=== PATIENT | male | born 1970 | race Caucasian/White ===

== ENCOUNTER 2020-04-07 13:22 | Emergency (ER) | payer SELFPAY ==
--- NOTE | 2020-04-07 13:57 | ER ---
Nurse's Notes [facility] Name: Dakota Davis Age: 49 yrs Sex: Male : 1970 Arrival Date: 04/07/2020 Time: 13:22 Bed Waiting Private MD: Diagnosis: Presentation: 04/07 13:35 Note Checked on pt. Pt states. "I have this chest pain for years now, but has gotten ca1 worse in the last 5 days". MO 67, SPO2 00%. ED Course: 13:22 Patient arrived in ED. ag5 13:54 Patient's name was called from ER lobby. No response. Unable to locate patient. Will ca1 disposition as left without being seen by a provider. Administered Medications: No medications were administered Outcome: 13:56 Patient left the ED. ca1 Signatures: Meche Yip RN RN ca1 Anjana Akins ag5 Corrections: (The following items were deleted from the chart) 14:02 13:35 Note Checked on pt. Pt states. "I have this chest pain for years now, but has ca1 gotten worse in the last 5 days". MO 67, SPO2 00%. ca1
== END 2020-04-07 13:56 | disposition left against medical advice (07) ==
LOC: ER 13:22
DX: Z53.21 Procedure and treatment not carried out due to patient leaving prior to being seen by health care provider (principal)

== ENCOUNTER 2020-08-06 06:23 | Emergency (ER) | payer SELFPAY ==
--- NOTE | 2020-08-06 07:30 | ER ---
Nurse's Notes [facility] Name: Dakota Davis Age: 50 yrs Sex: Male : 1970 Arrival Date: 08/06/2020 Time: 06:39 Bed Waiting Private MD: Diagnosis: ED Course: 08/06 06:39 Patient arrived in ED. am4 06:44 Patient's name was called from ER lobby. No response. bb 07:10 Patient's name was called from ER lobby. No response. Unable to locate patient. Will aa5 disposition as left without being seen by a provider. 07:28 Patient's name was called from ER lobby. No response. Unable to locate patient. Will aa5 disposition as left without being seen by a provider. Administered Medications: No medications were administered Outcome: 07:29 Patient left the ED. aa5 Signatures: Elba Griffiths RN RN bb Masha Lindsay RN RN aa5 Andie Curtis am4
== END 2020-08-06 07:29 | disposition left against medical advice (07) ==
LOC: ER 06:23
DX: R69 Illness, unspecified (principal); Z53.21 Procedure and treatment not carried out due to patient leaving prior to being seen by health care provider

== ENCOUNTER 2025-01-08 16:02 | Emergency (ER) | payer BC, SELFPAY ==
--- OUTSIDE RECORDS SUMMARY | 2025-01-08 16:03 | XMS REPORT | Continuity of Care Document ---
Author Name Unknown Address [address] [place] [address] [facility] Address [address] [place] [address] Care Team Providers Care Store Management Trainee Name Role Phone PCP, PATIENT DOES NOT HAVE A Primary Care Physic marlyn Unavailable Campaigns, Generic Provider Attending Clinician Unavailable Claudia LAZO Attending Clinician Unavailable Claudia LAZO Attending Clinician Unavailable Claudia Cordero Attending Clinician [phone] Claudia LAZO Admitting Clinician Unavailable Payers Payer Name Policy Type Policy Number Effective Date Expirati on Date Source Allergies, Adverse Reactions, Alerts Allergy Name Allergy Type Status Severity Reaction(s) Onset Date Inactive Date Treating Clinician Comments Source NO KNOWN ALLERGIE S Drug Class Active [facility] Social History Social Habit Start Date Stop Date Quantity Comments Source Sexual orientation [facility] Sex assigned at 1970 00:00:00 1970 00:00:00 [facility] Smoking Status Start Date Stop Date Source Tobacco smoking consumption unknown [facility] Vital Signs Vital Name Observation Time Observation Value Comments Joseph lalatheo Systolic blood pressure 2024-03-29 00:38:13 163 mm[Hg] [facility] Diastolic blood pressure 2024-03-29 00:38:13 88 mm[Hg] [facility] Heart rate 2024-03-29 00:38:13 55 /min [facility] Body temperature 2024-03-29 00:38:13 36.78 Brenda [facility] Respiratory rate 2024-03-29 00:38:13 18 /min [facility] Body height 2024-03-29 00:38:13 177.8 cm [facility] Body weight 2024-03-29 00:38:13 70.308 kg [facility] BMI 2024-03-29 00:38:13 22.24 kg/m2 [facility] Oxygen saturation in Arterial blood by Pulse oximetry 2024-03-29 00:38:13 98 /min Arley o f [facility] Procedures Procedure Date / Time Performed Performing Clinicia n Source XR CHEST 1 2024-03-29 01:50:00 Claudia Lazo [facility] Encounters Start Date/Time End Date/Time Encounter Type Admission Type Attending [facility] Care Facility Care Department Encounter ID Source 2024-04-04 00:00:00 2024-04-04 10:57:00 Letter (Out) Campaigns, Generic Provider Campaigns, Generic Provider [facility] [id number] [facility] 2024-03-28 19:42:00 2024-03-28 21:55:00 Emergency X Claudia LAZO K [facility] ERT [id number] [facility] 2024-03-28 19:42:00 2024-03-28 21:55:00 Emergency Claudia Lazo [facility] [id number] [facility] 2020-08-29 05:48:00 2020-08-29 05:48:00 Emergency X [facility] ERT [id number] [facility] Results Test Description Test Time Test Comments Results Resul t Comments Source XR CHEST 1 2024-03-01 1 02:28:36 STUDY: SINGLE FRONTAL VIEW OF THE CHEST ORDERING PHYSICIAN: Claudia LAZO DATE: ?03/28/2024 8:30 PM REASON FOR EXAM: ?panic attack TECHNIQUE: ?Frontal view of the chest COMPARISON: None available FINDINGS: The cardiomediastinal silhouette is normal. There is mild atelectasis/scarring in the right midlung. There is noconsolidation, pneumothorax or effusion. The remaining osseous and soft tissue structures are unremarkable. [facility] Notes Date/Time Note Provider Source 2024-03-28 21:34:28 ER registration called to say the patient was leaving. Hannah Silverman RN [facility] 2024-03-28 19:35:08 CC: Patient's received bad news today, and patient began to get emotion and he couldn't breath. Pt was able to take a few sips of water, and felt better. Pt denies previous panic attacks. No PMH of anxiety. Awake, alert, oriented, resp reg unlabored, skin intact, color appropriate for race, moves all ext without difficulty, amb Antonina Sanches RN [facility]
[2025-01-08] MEDS ORDERED: ONDANSETRON 4 MG/2 ML VIAL ONE (17:29)
[2025-01-08] MEDS ORDERED: MORPHINE 4 MG/ML SYR ONE (17:29)
[2025-01-08 17:32] LABS: Absolute Lymphocytes (CBC) 2.5 K/uL (0.7-4.9); Hematocrit 53.5 % (39.6-49.0); Hemoglobin 18.2 g/dL (13.6-17.9); MCH 31.4 pg (27.0-35.0); MCHC 34.0 g/dL (32.0-36.0); MCV 92.4 fL (80-100); MPV 10.4 fL (7.6-11.3); Nucleated RBC Absolute Count 0.0 (0-0); Nucleated Red Blood Cells % 0.1 % (0-0); RBC Red Blood Cell Count 5.79 M/uL (4.33-5.43); White Blood Count 13.00 thou/uL (4.3-10.9)
[2025-01-08 17:52] LABS: ALT/SGPT 45.0 U/L (16-61); AST/SGOT 29.0 U/L (15-37); Albumin 4.2 g/dL (3.4-5.0); Albumin/Globulin Ratio 1.2 (1.1-1.8); Alkaline Phosphatase 72.0 U/L (45-117); Anion Gap 8.2 mEq/L (5.0-15.0); BUN Blood Urea Nitrogen 13.0 mg/dL (7-18); Globulin 3.4 g/dL (2.3-3.5); Glucose Level 100.0 mg/dL (74-106); Potassium 4.2 mEq/L (3.5-5.1); Troponin High Sensitivity 5.2 pg/mL (<58.9)
--- NOTE | 2025-01-08 17:57 | RAD REPORT ---
EXAMINATION: TWO VIEW CHEST XR CLINICAL INDICATION: Male, 54 years old. [facility] MAIN COUGH Bed Name: [facility] TECHNIQUE: 2 view radiographs of the chest were performed. COMPARISON: 04/23/2012. FINDINGS: The lungs are well inflated and clear. No pneumothorax or sizable effusion. The heart is normal in si ze. Mediastinal contours are unremarkable. IMPRESSION: No acute or significant abnormalities.
--- NOTE | 2025-01-08 17:59 | RAD REPORT ---
EXAMINATION: XR RIGHT SHOUDLER CLINICAL INDICATION: Male, 54 years old. PAIN RIGHT TECHNIQUE:Two view radiograph of the right shoulder were obtained. COMPARISON: No prior exam. FINDINGS: No acute bone or joint abnormality detected. Mild AC joint degenerative changes. Soft tissu es are unremarkable. IMPRESSION: No acute or significant abnormalities.
--- NOTE | 2025-01-08 18:41 | RAD REPORT ---
EXAMINATION: US Extrem Venous W Compress Mahamed CLINICAL INDICATION: [facility] SWELL[facility] Bed Name: 14 Y TECHNIQUE: Complete bilateral duplex sonography of the BILATERAL lower extremity veins was performed. The examination included compression for vein patency, color Doppler imaging and flow augmentation in response to distal compression of the distal external iliac, common femoral, femoral, popliteal, t ibial, and great and small saphenous veins. COMPARISON: No prior exam. FINDINGS: Duplex sonography testing of the veins of the BILATERAL lower extremity was performed. Color flow soraya ging shows all veins to be compressible with [id number] color filling. Pulsatile and phasic flow is present within all lower extremity deep and superficial veins examined. IMPRESSION: There is no deep vein or superficial vein thrombosis.
--- NOTE | 2025-01-08 18:50 | ER ---
Nurse's Notes [facility] Name: Dakota Davis Age: 54 yrs Sex: Male : 1970 Arrival Date: 01/08/2025 Time: 16:02 Bed 13 Private MD: Diagnosis: Acute upper respiratory infection, unspecified Presentation: 01/08 16:21 Chief complaint: Right sided neck pain that radiates to right arm x 3 weeks, pain hb became worse 3 days ago. Coronavirus screen: At this time, the client does not indicate any symptoms associated with coronavirus-19. Ebola Screen: No symptoms or risks identified at this time. Initial Sepsis Screen: Does the patient meet any 2 criteria? No. Patient's initial sepsis screen is negative. Does the patient have a suspected source of infection? No. Patient's initial sepsis screen is negative. Risk Assessment: Do you want to hurt yourself or someone else? Patient reports no desire to harm self or others. Onset of symptoms was December 18, 2024. 16:21 Method Of Arrival: Ambulatory hb 16:21 Acuity: KM 3 hb Historical: - Allergies: 16:24 No Known Allergies; hb - Immunization history:: Adult Immunizations unknown. - Infectious Disease History:: Denies. - Social history:: Smoking status: unknown. Screenin:13 [facility] ED Fall Risk Assessment (Adult) History of falling in the last 3 months, db including since admission No falls in past 3 months (0 pts) Confusion or Disorientation No (0 pts) Intoxicated or Sedated No (0 pts) Impaired Gait No (0 pts) Mobility Assist Device Used No (0 pt) Altered Elimination No (0 pt) Score/Fall Risk Level 0 - 2 = Low Risk Oriented to surroundings, Maintained a safe environment. Abuse screen: Denies threats or abuse. Denies injuries from another. Nutritional screening: No deficits noted. Tuberculosis screening: No symptoms or risk factors identified. Assessment: 17:36 Reassessment: Patient appears in no apparent distress at this time. Patient and/or db family updated on plan of care and expected duration. Pain level reassessed. Patient is alert, oriented x 3, equal unlabored respirations, skin warm/dry/pink. General: Appears in no apparent distress. comfortable, Behavior is calm, cooperative. Pain: Complains of pain in right arm. Neuro: Level of Consciousness is awake, alert, obeys commands, Oriented to person, place, time, situation. Respiratory: Airway is patent Respiratory effort is even, unlabored, Respiratory pattern is regular, symmetrical. 19:07 Reassessment: Patient appears in no apparent distress at this time. Patient and/or db family updated on plan of care and expected duration. Pain level reassessed. Patient is alert, oriented x 3, equal unlabored respirations, skin warm/dry/pink. Patient states feeling better. Patient states symptoms have improved. Vital Signs: 16:21 BP 152 / 99; Pulse 62; Resp 18; Temp 97.1; Pulse Ox 99% on R/A; Weight 70.31 kg; Height hb 5 ft. 9 in. ; Pain 4/10; 18:03 BP 116 / 82; Pulse 53; Resp 16; Pulse Ox 95% ; db 18:30 BP 155 / 92; Pulse 56; Resp 16; Pulse Ox 95% ; db 16:21 Body Mass Index 22.89 (70.31 kg, 175.26 cm) hb 16:21 Pain Scale: Adult hb ED Course: 16:03 Patient arrived in ED. im 16:03 Shukri Clark FNP-C is PHCP. dr5 16:03 Fidencio Myrick MD is Attending Physician. dr5 16:24 Triage completed. hb 16:58 Chest Pa And Lat (2 Views) XRAY In Process Unspecified. EDMS 16:58 Shoulder Right (2 View) XRAY In Process Unspecified. EDMS 17:20 Initial lab(s) drawn, by me, sent to lab. Inserted saline lock: 20 gauge in left wrist, db using aseptic technique. Blood collected. Flushed with 10 mL NS. 17:35 Elsie Stack, RN is Primary Nurse. db 17:56 US Extremity Venous W Compression Mahamed In Process Unspecified. EDMS 18:13 Patient has correct armband on for positive identification. Bed in low position. Call db light in reach. Side rails up X 1. Pulse ox on. NIBP on. 18:15 Patient placed in an exam room. db 19:07 No provider procedures requiring assistance completed. IV discontinued, intact, db bleeding controlled, No redness/swelling at site. 19:07 Provided Education on: PRESCRIPTIONS AND FOLLOWUP. db Administered Medications: 17:30 Drug: morphine IVP or IV 4 mg IVP once over 4 mins Route: IVP; Infused Over: 4 mins; db Site: left hand; 18:14 Follow up: Response: No adverse reaction; Pain is decreased db 17:30 Drug: Ondansetron IVP 4 mg IVP once; over 2 minutes Route: IVP; Site: left hand; db 18:14 Follow up: Response: No adverse reaction db Medication: 18:13 VIS not applicable for this client. db Outcome: 18:49 Discharge ordered by . dr5 19:07 Discharged to home ambulatory, with family, db 19:07 Condition: stable 19:07 Discharge instructions given to patient, family, Instructed on discharge instructions, follow up and referral plans. Prescriptions given X 4, 19:08 Patient left the ED. db Signatures: Dispatcher [employer] EDMS Sosa Pennington, RN RN Elsie Gann RN RN db Zee Rothman Dustin, DIRECTOR INFORMATION-C DIRECTOR INFORMATION-Cdr5 Corrections: (The following items were deleted from the chart) 16:26 16:21 BP 152 / 99; Pulse 62bpm; Resp 18bpm; Pulse Ox 99% RA; Temp 97.1F; hb hb
--- NOTE | 2025-01-08 18:50 | EDPHYS ---
Physician Documentation [facility] Name: Dakota Davis Age: 54 yrs Sex: Male : 1970 Arrival Date: 01/08/2025 Time: 16:02 Bed 13 Private MD: ED Physician Fidencio Myrick HPI: 01/08 21:04 This 54 yrs old Male presents to ER via Ambulatory with complaints of Arm dr5 Pain - right. 21:04 The complaints affect the anterior aspect of right shoulder. Onset: The dr5 symptoms/episode began/occurred. Patient is a 54-year-old male with no past medical history coming in with multiple complaints. Patient reports bilateral lower extremity pain is intermittent for the past 6 years. Patient also reports over the last 3 weeks his right shoulder has been hurting that radiates down to his right arm. Patient also complains intermittent chest discomfort, cough, congestion. Patient reports he is a daily pack smoker of cigarettes. Historical: - Allergies: 16:24 No Known Allergies; hb - Immunization history:: Adult Immunizations unknown. - Infectious Disease History:: Denies. - Social history:: Smoking status: unknown. ROS: 21:04 Constitutional: as per hpi dr5 Exam: 21:04 Constitutional: This is a well developed, well nourished patient who is awake, alert, dr5 and in no acute distress. Head/Face: Normocephalic, atraumatic. Eyes: Pupils equal round and reactive to light, extra-ocular motions intact. Lids and lashes normal. Conjunctiva and sclera are non-icteric and not injected. Cornea within normal limits. Periorbital areas with no swelling, redness, or edema. Neck: Trachea midline, no thyromegaly or masses palpated, and no cervical lymphadenopathy. Supple, full range of motion without nuchal rigidity, or vertebral point tenderness. No Meningismus. Chest/axilla: Normal chest wall appearance and motion. Nontender with no deformity. No lesions are appreciated. Cardiovascular: Regular rate and rhythm with a normal S1 and S2. Normal PMI, no JVD. No pulse deficits. Respiratory: Lungs have equal breath sounds bilaterally, clear to auscultation. No rales, rhonchi or wheezes noted. No increased work of breathing, no retractions or nasal flaring. Abdomen/GI: Soft, non-tender, non-distended Back: No spinal tenderness. No costovertebral tenderness. Full range of motion. Mild tenderness to right upper back Skin: Warm, dry with normal turgor. Normal color with no rashes, no lesions, and no evidence of cellulitis. MS/ Extremity: Pulses equal, no cyanosis. Neurovascular intact. Full, normal range of motion. Neuro: Awake and alert, GCS 15, oriented to person, place, time, and situation. Cranial nerves II-XII grossly intact. Motor strength 5/5 in all extremities. Sensory grossly intact. Cerebellar exam normal. Normal gait. Vital Signs: 16:21 BP 152 / 99; Pulse 62; Resp 18; Temp 97.1; Pulse Ox 99% on R/A; Weight 70.31 kg; Height hb 5 ft. 9 in. ; Pain 4/10; 18:03 BP 116 / 82; Pulse 53; Resp 16; Pulse Ox 95% ; db 18:30 BP 155 / 92; Pulse 56; Resp 16; Pulse Ox 95% ; db 16:21 Body Mass Index 22.89 (70.31 kg, 175.26 cm) hb 16:21 Pain Scale: Adult hb MDM: 16:03 Medical Screening Exam initiated dr5 21:04 Differential diagnosis: dislocation, open fracture, contusion, abrasion, DVT, troponin. dr5 Data reviewed: vital signs, nurses notes, lab test result(s), cardiac enzymes, troponin i, CBC, white blood cell count, hemoglobin, hematocrit, platelets, electrolytes, sodium, potassium, chloride, serum bicarbonate, BUN, creatinine, serum glucose, radiologic studies, plain films, ultrasound. Consideration of Admission/Observation Escalation of care including admission/observation considered. Escalation considered patient found to have elevated troponin or DVT on ultrasound. I considered the following discharge prescriptions or medication management in the emergency department I discussed and recommended Over The Counter medications, Medications were administered in the Emergency Department. See MAR. Historians other than the Patient: Spouse/Significant Other: . Care significantly affected by the following Social Determinants of Health: Poor access to healthcare and/or lack of insurance, Poor access to transportation, Problems related to employment. Scoring Tools HEART Score: History: ECG: Age: Risk Factors: No Risk Factors Known (0), Troponin: Total Score = 1. Counseling: I had a detailed discussion with the patient and/or guardian regarding the historical points, exam findings, and any diagnostic results supporting the discharge/admit diagnosis, the presence of at least one elevated blood pressure reading (>120/80) during this emergency department visit, lab results, radiology results. Counseling: I had a detailed discussion with the patient and/or guardian regarding the need for outpatient follow up, for definitive care, a family practitioner, to return to the emergency department if symptoms worsen or persist or if there are any questions or concerns that arise at home, smoking cessation. Medication response: morphine relieved the patient's pain. Symptoms have resolved, Zofran relieved the patient's nausea. Response to treatment: the patient's symptoms have resolved after treatment, the patient's condition has returned to base line. Special discussion: I have referred the patient to see his PCP for further evaluation of high blood pressure. I discussed with the patient/guardian in detail that at this point there is no indication for admission to the hospital. It is understood, however, that if the symptoms persist or worsen the patient needs to return immediately for re-evaluation. Based on the history and exam findings, there is no indication for further emergent testing or inpatient evaluation. I discussed with the patient/guardian the need to see the primary care provider for further evaluation of the symptoms. ED course: . 23:01 ED course: Longer physician with patient as well as his . Recommended patient dr5 establish care with primary care doctor. with patient was requesting ultrasounds of legs as well as blood work. All diagnostics and labs were printed and given to patient. All questions answered. Strict ER precautions given. Patient reports he so much better. Recommended smoking cessation. 01/08 17:02 Order name: CBC with Diff; Complete Time: 17:42 dr5 01/08 17:02 Order name: CMP; Complete Time: 18: dr5 01/08 17:02 Order name: Troponin High Sensitivity; Complete Time: 18: dr5 01/08 16:27 Order name: Chest Pa And Lat (2 Views) XRAY; Complete Time: 18:01 hb 01/08 16:27 Order name: Shoulder Right (2 View) XRAY; Complete Time: 18:01 hb 01/08 17:02 Order name: US Extremity Venous W Compression Mahamed; Complete Time: 18:43 dr5 Administered Medications: 17:30 Drug: morphine IVP or IV 4 mg IVP once over 4 mins Route: IVP; Infused Over: 4 mins; db Site: left hand; 18:14 Follow up: Response: No adverse reaction; Pain is decreased db 17:30 Drug: Ondansetron IVP 4 mg IVP once; over 2 minutes Route: IVP; Site: left hand; db 18:14 Follow up: Response: No adverse reaction db Disposition Summary: 01/08/25 18:49 Discharge Ordered Notes: Location: Home dr5 Condition: Stable dr5 Diagnosis - Acute upper respiratory infection, unspecified dr5 Followup: dr5 - With: Emergency Department - When: As needed - Reason: Worsening of condition Followup: dr5 - With: Private Physician - When: 1 - 2 days - Reason: Recheck today's complaints, Continuance of care, Re-evaluation by your physician Discharge Instructions: - Discharge Summary Sheet dr5 - Muscle Strain dr5 - Upper Respiratory Infection, Adult dr5 Forms: - Medication Reconciliation Form dr5 - Antibiotic Education dr5 - Prescription Opioid Use dr5 - Patient Portal Instructions dr5 - Leadership Thank You Letter dr5 Prescriptions: - Cyclobenzaprine 10 mg Oral Tablet - take 1 tablet ORAL route every 8 hours As needed; 30 tablet; Refills: 0, dr5 Product Selection Permitted - Tramadol 50 mg Oral Tablet - take 1 tablet ORAL route every 8 hours as needed; 12 tablet; Refills: 0, dr5 Product Selection Permitted - Zithromax Z-Terrance 250 mg Oral Tablet - take 1 tablet ORAL route as directed for 5 days Day 1 - take two (2) tablets dr5 one time. Day 2, 3, 4 , 5 take one (1) tablet once daily.; 6 tablet; Refills: 0, Product Selection Permitted - Medrol (Terrance) 4 mg Oral Tablets, Dose Pack - take 1 tablet ORAL route as directed - follow package instructions; 1 packet; dr5 Refills: 0, Product Selection Permitted Signatures: Dispatcher [employer] EDMS Sosa Pennington RN RN Elsie Gann RN RN db Shukri Clark, YANELY-C DICTAPHONE TECHNICIAN-Cdr5 Corrections: (The following items were deleted from the chart) 17:03 17:03 CBC+H.LAB.BRZ ordered. EDMS EDMS 17:03 17:03 COMPREHENSIVE METABOLIC PANEL+C.LAB.BRZ ordered. EDMS EDMS 17:03 17:03 Troponin High Sensitivity+C.LAB.BRZ ordered. EDMS EDMS 17:03 17:03 Extrem Venous W Compression Mahamed+US.RAD.BRZ ordered. EDMS EDMS
[2025-01-08 19:35] VITALS: TEMP 97.1
[2025-01-08 19:37] VITALS: O2SAT 95
[2025-01-08 19:38] VITALS: BP 155/92
== END 2025-01-08 19:08 | disposition home or self-care (01) ==
LOC: ER 16:02
DX: J06.9 Acute upper respiratory infection, unspecified (principal); M25.511 Pain in right shoulder; M79.605 Pain in left leg; M79.604 Pain in right leg; F17.210 Nicotine dependence, cigarettes, uncomplicated
CPT/HCPCS: 36415; 71046; 80053; 84484; 85025; 93970; 96374; 96375; 99284; J2405